=== PATIENT | male | born 1955 | race African-American/Black ===

== ENCOUNTER 2021-10-04 16:40 | Emergency (ER) | payer MEDICARE, OTHER ==
[~2021-10-04] VITALS: Ht 167.6 cm; Wt 83.6 kg
[~2021-10-04 16:40] MED LIST: ACET-66 PO; ATOR10TA84 PO; FOLI-130 PO; MULT-1239 PO; THIA100T80 PO; [UNRECOGNIZED DRUG - OTHER] PO
[2021-10-04] MEDS ORDERED: ONDANSETRON HCL 4 MG/2 ML VIAL IVP ONE (18:15)
[2021-10-04] MEDS ORDERED: PB/HYOSCY/ATR/SCOP/LIDO/MAALOX 55 ML BOTTLE PO ONE (18:15)
[2021-10-04 18:45] LABS: COVID AG,FIA SOURCE NASAL SWAB
[2021-10-04 18:48] LABS: BASOPHILS % (AUTO) 0.3 % (0.0-2.0); EOSINOPHILS % (AUTO) 0.1 % (1.0-6.0); HEMATOCRIT 33.6 % (41-53); HEMOGLOBIN 10.7 g/dL (13.5-17.5); LYMPHOCYTES # (AUTO) 7.2 K/uL (1.0-4.8); LYMPHOCYTES % (AUTO) 67.2 % (22.0-44.0); MEAN CORPUSCULAR HEMOGLOBIN 30.1 pg (26.0-34.0); MEAN CORPUSCULAR HGB CONC 31.7 G/dL (31.0-37.0); MEAN CORPUSCULAR VOLUME 95 fL (80-100); MONOCYTES # (AUTO) 0.4 K/uL (0.1-1.0); MONOCYTES % (AUTO) 3.6 % (2.0-9.0); NEUTROPHILS # (AUTO) 3.1 K/uL (1.8-7.7); NEUTROPHILS % (AUTO) 28.8 % (40.0-70.0); PLATELET COUNT (AUTO) 138 K/uL (150-450); RED BLOOD CELL COUNT(AUTO) 3.54 MIL/uL (4.50-5.90); RED CELL DISTRIBUTION WIDTH 17.8 % (11.5-14.5)
[2021-10-04 18:53] LABS: PROTHROMBIN TIME 10.5 SEC (9.4-11.6)
[2021-10-04 19:02] LABS: ANION GAP 17 mmol/L (8-16); CALCIUM, TOTAL 9.7 mg/dL (8.8-10.5); CARBON DIOXIDE 25 mmol/L (22-29); CHLORIDE 97 mmol/L (98-107); CREATININE 1.06 mg/dL (0.60-1.30); GLUCOSE,RANDOM 184 mg/dL (70-110); POTASSIUM 4.3 mmol/L (3.5-5.1); SODIUM SERUM 139 mmol/L (136-145); UREA NITROGEN, BLOOD 12 mg/dL (7-18)
[2021-10-04 19:03] LABS: GLOMERULAR FILTR. RATE CALC > 60 mL/min (>60)
[2021-10-04 19:08] LABS: ALANINE AMINOTRANSFERASE 78 U/L (12-78); ALBUMIN 3.4 g/dL (3.4-5.0); ALKALINE PHOSPHATASE 93 U/L (46-116); ASPARTATE AMINOTRANSFERASE 456 U/L (15-37); BILIRUBIN,TOTAL 1.9 mg/dL (0.1-1.0); TOTAL PROTEIN, SERUM 7.4 g/dL (6.4-8.2)
[2021-10-04 19:45] LABS: INFLUENZA TYPE A NEGATIVE FOR TYPE A (NEGATIVE); INFLUENZA TYPE B NEGATIVE FOR TYPE B (NEGATIVE)
[2021-10-04 21:33] VITALS: BP 138/88
== END 2021-10-04 22:14 | disposition home or self-care (01) ==
LOC: EMS 16:46
DX: K52.9 Noninfective gastroenteritis and colitis, unspecified (principal); Z20.822 Contact with and (suspected) exposure to COVID-19; E11.9 Type 2 diabetes mellitus without complications; F10.20 Alcohol dependence, uncomplicated; I10 Essential (primary) hypertension; R06.02 Shortness of breath
CPT/HCPCS: 99285; 96374; 76705; 71045; 87426; 80053; 84484; 85025; 85610; 85730; 87804; 93005; J2405

== ENCOUNTER 2021-11-13 09:08 | Emergency (ER) | payer MEDICARE, OTHER ==
[~2021-11-13] VITALS: Ht 167.6 cm; Wt 77.3 kg
[2021-11-13 14:12] LABS: HEMATOCRIT 33.3 % (41-53); HEMOGLOBIN 10.7 g/dL (13.5-17.5); MEAN CORPUSCULAR HEMOGLOBIN 32.1 pg (26.0-34.0); MEAN CORPUSCULAR HGB CONC 32.2 G/dL (31.0-37.0); MEAN CORPUSCULAR VOLUME 100 fL (80-100); PLATELET COUNT (AUTO) 169 K/uL (150-450); RED BLOOD CELL COUNT(AUTO) 3.34 MIL/uL (4.50-5.90); RED CELL DISTRIBUTION WIDTH 18.2 % (11.5-14.5)
[2021-11-13 14:23] LABS: ANION GAP 12 mmol/L (8-16); CALCIUM, TOTAL 9.5 mg/dL (8.8-10.5); CARBON DIOXIDE 29 mmol/L (22-29); CHLORIDE 96 mmol/L (98-107); CREATININE 1.14 mg/dL (0.60-1.30); GLUCOSE,RANDOM 120 mg/dL (70-110); POTASSIUM 3.5 mmol/L (3.5-5.1); SODIUM SERUM 137 mmol/L (136-145); UREA NITROGEN, BLOOD 11 mg/dL (7-18)
[2021-11-13 14:24] LABS: GLOMERULAR FILTR. RATE CALC > 60 mL/min (>60)
[2021-11-13 14:28] LABS: ALANINE AMINOTRANSFERASE 26 U/L (12-78); ALBUMIN 3.6 g/dL (3.4-5.0); ALKALINE PHOSPHATASE 58 U/L (46-116); ASPARTATE AMINOTRANSFERASE 57 U/L (15-37); BAND NEUTROPHILS % (MANUAL) 0 % (0-5); BILIRUBIN,TOTAL 1.1 mg/dL (0.1-1.0); LYMPHOCYTES % (MANUAL) 63 % (22-44); MONOCYTES % (MANUAL) 1 % (2-9); SEGMENTED NEUTROPHILS % 36 % (40-70); TOTAL PROTEIN, SERUM 7.2 g/dL (6.4-8.2)
[2021-11-13] MEDS ORDERED: SODIUM CHLORIDE 0.9% 1,000 ML IV ONE ×3 (15:15→17:45)
[2021-11-13 19:59] VITALS: BP 117/63
== END 2021-11-13 20:03 | disposition home or self-care (01) ==
LOC: EMS 09:11
DX: R55 Syncope and collapse (principal); E86.0 Dehydration; D72.829 Elevated white blood cell count, unspecified; F10.20 Alcohol dependence, uncomplicated; E11.9 Type 2 diabetes mellitus without complications; I10 Essential (primary) hypertension; G80.9 Cerebral palsy, unspecified; F17.210 Nicotine dependence, cigarettes, uncomplicated
CPT/HCPCS: 70450; 71045; 72125; 80053; 84484; 85025; 93005; 96360; 96361; 99285; 36415-L1; 36415-TC

== ENCOUNTER 2021-12-11 19:50 | Emergency (ER) | payer MEDICARE, OTHER ==
[~2021-12-11] VITALS: Ht 167.6 cm; Wt 81.8 kg
[~2021-12-11 19:50] MED LIST changes: +ATOR10TA PO; -ATOR10TA84 PO
[2021-12-11 20:54] LABS: HEMATOCRIT 27.1 % (41-53); HEMOGLOBIN 8.7 g/dL (13.5-17.5); MEAN CORPUSCULAR HEMOGLOBIN 32.2 pg (26.0-34.0); MEAN CORPUSCULAR VOLUME 101 fL (80-100); PLATELET COUNT (AUTO) 217 K/uL (150-450); RED CELL DISTRIBUTION WIDTH 16.4 % (11.5-14.5)
[2021-12-11 21:07] LABS: APPEARANCE,URINE CLEAR (CLEAR); BILIRUBIN,URINE NEGATIVE (NEGATIVE); GLUCOSE, URINE (UA) NEGATIVE (NEGATIVE); KETONES,URINE NEGATIVE (NEGATIVE); LEUKOCYTE ESTERASE ,URINE NEGATIVE (NEGATIVE); NITRATE,URINE NEGATIVE (NEGATIVE); OCCULT BLOOD,URINE NEGATIVE (NEGATIVE); PROTEIN,URINE NEGATIVE (NEGATIVE); SPECIFIC GRAVITIY, URINE 1.007 (1.003-1.030); UROBILINOGEN,URINE <=1.0 mg/dL (<=1.0)
[2021-12-11 21:07] LABS: ALANINE AMINOTRANSFERASE 13 U/L (12-78); ALBUMIN 2.5 g/dL (3.4-5.0); ALKALINE PHOSPHATASE 76 U/L (46-116); ANION GAP 9 mmol/L (8-16); ASPARTATE AMINOTRANSFERASE 19 U/L (15-37); BILIRUBIN,TOTAL 0.2 mg/dL (0.1-1.0); CALCIUM, TOTAL 8.2 mg/dL (8.8-10.5); CARBON DIOXIDE 28 mmol/L (22-29); CHLORIDE 106 mmol/L (98-107); CREATINE KINASE, TOTAL ONLY 47 U/L (39-308); CREATININE 0.89 mg/dL (0.60-1.30); GLUCOSE,RANDOM 157 mg/dL (70-110); SODIUM SERUM 143 mmol/L (136-145); TOTAL PROTEIN, SERUM 5.7 g/dL (6.4-8.2); UREA NITROGEN, BLOOD 5 mg/dL (7-18)
[2021-12-11 21:10] LABS: GLOMERULAR FILTR. RATE CALC > 60 mL/min (>60); POTASSIUM 2.5 mmol/L (3.5-5.1)
[2021-12-11 21:12] LABS: B-TYPE NATRIURETIC PEPTIDE 309 pg/mL (0-100)
[2021-12-11 21:13] LABS: AMPHET/METH SCREEN,URINE NEGATIVE (NEGATIVE); BARBITURATE SCREEN, URINE NEGATIVE (NEGATIVE); BENZODIAZEPINES SCREEN,URINE NEGATIVE (NEGATIVE); CANNABINOID SCREEN,URINE NEGATIVE (NEGATIVE); COCAINE SCREEN,URINE NEGATIVE (NEGATIVE); METHADONE SCREEN, URINE NEGATIVE (NEGATIVE); OPIATE SCREEN,URINE NEGATIVE (NEGATIVE)
[2021-12-11] MEDS ORDERED: POTASSIUM CHLORIDE 20 MEQ ER TABLET PO ONE (21:15)
[2021-12-11 21:17] LABS: PHENCYCLIDINE SCREEN,URINE NEGATIVE (NEGATIVE)
[2021-12-11 21:42] LABS: BAND NEUTROPHILS % (MANUAL) 0 % (0-5)
[2021-12-11] MEDS ORDERED: CefTRIAXone 1 GM/DEXTROSE 50 ML IV ONE (22:15)
[2021-12-11] MEDS: POTASSIUM CHL 10 MEQ/WATER 50 ML IV SCH ×2 (22:15→22:20)
[2021-12-11] MEDS ORDERED: SODIUM CHLORIDE 0.9% 1,000 ML IV ONE ×2 (22:15→23:15)
[2021-12-11 22:20] LABS: BLASTS, MANUAL % 1 (0-0); LYMPHOCYTES % (MANUAL) 75 % (22-44); MONOCYTES % (MANUAL) 1 % (2-9); REACTIVE LYMPHOCYTES 8 % (0-0); SEGMENTED NEUTROPHILS % 15 % (40-70)
[2021-12-11 22:25] LABS: COVID AG,FIA SOURCE NASAL SWAB
[2021-12-11 22:37] LABS: LACTIC ACID 4.1 mmol/L (0.4-2.0)
[2021-12-11] MEDS ORDERED: AZITHROMYCIN 500 MG/NS 250 ML IV ONE (23:15)
[2021-12-11 23:18] LABS: INFLUENZA TYPE A NEGATIVE FOR TYPE A (NEGATIVE); INFLUENZA TYPE B NEGATIVE FOR TYPE B (NEGATIVE)
[2021-12-11] MEDS ORDERED: MAGNESIUM SULFATE 2 GM/WATER 50 ML IV ONE (23:30)
[2021-12-11] MEDS ORDERED: SODIUM CHLORIDE 0.9% 500 ML IV ONE (23:30)
[2021-12-12 00:58] VITALS: BP 136/87
== END 2021-12-12 02:17 | disposition short-term general hospital (02) ==
LOC: EMS 19:51
DX: F10.129 Alcohol abuse with intoxication, unspecified (principal); E87.6 Hypokalemia; R29.6 Repeated falls; D72.829 Elevated white blood cell count, unspecified; R74.02 Elevation of levels of lactic acid dehydrogenase [LDH]; I10 Essential (primary) hypertension; E11.9 Type 2 diabetes mellitus without complications; G80.9 Cerebral palsy, unspecified; Z20.822 Contact with and (suspected) exposure to COVID-19
CPT/HCPCS: 99285; 96365; 96366; 70450; 71045; 87426; 80053; 82550; 83605; 83735; 83880; 84484; 85025; 85730; 87040; 87804; 93005; 96368; 80307; 84145; 81003; 36415; G0480; J3480 ×2; J3475; 51702; 96361